=== PATIENT | male | born 1965 | race Caucasian/White ===

== ENCOUNTER 2017-01-13 15:06 | Outpatient (CLI) | payer BC, OTHER ==
[2017-01-13 16:13] LABS: #Basophils 0.1 thou/uL (0.0-0.2); #Eosinphils 0.6 thou/uL (0.0-0.7); #Lymphocytes 2.6 thou/uL (1.20-3.40); %Basophils 0.8 % (0.0-1.0); %Eosinophils 4.3 % (0.0-10.0); %Lymphocytes 19.7 % (21.0-51.0); %Monocytes 7.4 % (0.0-10.0); %Neutrophils 67.9 % (42.0-75.0); Mean Corpuscular HGB CONC 34.2 g/dL (32.0-36.0); Mean Corpuscular Hemoglobin 33.5 pg (27.0-31.0); Mean Platelet Volume 6.2 fL (7.4-10.4); Platelet Count 297 thou/uL (130-400); RBC Distribution Width 12.4 % (11.5-14.5); Red Blood Cell (RBC) Count 4.78 mill/uL (4.70-6.10); White Blood Cell (WBC) Count 13.2 thou/uL (4.8-10.8)
[2017-01-13 16:29] LABS: ALT (SGPT) 22 U/L (0-55); AST (SGOT) 20 U/L (5-34); Albumin 4.1 g/dL (3.5-5.0); Alkaline Phosphatase 101 U/L (40-150); Anion Gap 13 mmol/L (10-20); BUN (Urea Nitrogen) 12 mg/dL (8.4-25.7); Bilirubin, Total 0.4 mg/dL (0.2-1.2); Calc. Creatinine Clearance 0 mL/min (70-130); Carbon Dioxide 25 mmol/L (22-29); Cardiac Risk 8.6 (Less than 4.5); Chloride 105 mmol/L (98-107); Cholesterol 224 mg/dL (< 200 Desired); Estimated GFR-MDRD Greater than 90; Globulin 2.8 g/dL (2.4-3.5); Glucose 105 mg/dL (70-105); HDL Cholesterol 26 mg/dL (>60 Neg Risk); Potassium 4.1 mmol/L (3.5-5.1); Protein, Total 6.9 g/dL (6.0-8.3); Sodium 139 mmol/L (136-145); Triglycerides 541 mg/dL (Less than 150)
== END 2017-01-13 15:07 | disposition home or self-care (01) ==
LOC: HPCALD 15:06
PROVIDERS: ATTEND Physician Assistant
DX: I10 Essential (primary) hypertension (principal)
CPT/HCPCS: 36415; 80053; 80061; 84443; 85025

== ENCOUNTER 2017-02-17 16:53 | Outpatient (CLI) | payer BC ==
[2017-02-17 17:04] LABS: #Basophils 0.1 thou/uL (0.0-0.2); #Eosinphils 0.5 thou/uL (0.0-0.7); #Lymphocytes 2.7 thou/uL (1.20-3.40); #Neutrophils 7.5 thou/uL (1.40-6.50); %Basophils 1.3 % (0.0-1.0); %Eosinophils 4.2 % (0.0-10.0); %Lymphocytes 23.1 % (21.0-51.0); %Monocytes 8.1 % (0.0-10.0); %Neutrophils 63.4 % (42.0-75.0); Hemoglobin 16.3 g/dL (14.0-18.0); Mean Corpuscular HGB CONC 33.3 g/dL (32.0-36.0); Mean Corpuscular Hemoglobin 32.7 pg (27.0-31.0); Mean Corpuscular Volume 98.3 fl (80.0-94.0); Mean Platelet Volume 6.8 fL (7.4-10.4); Platelet Count 201 thou/uL (130-400); RBC Distribution Width 13.4 % (11.5-14.5); White Blood Cell (WBC) Count 11.8 thou/uL (4.8-10.8)
[2017-02-17 18:03] LABS: Anion Gap 16 mmol/L (10-20); BUN (Urea Nitrogen) 13 mg/dL (8.4-25.7); Calc. Creatinine Clearance 0 mL/min (70-130); Calcium 9.2 mg/dL (7.8-10.44); Chloride 107 mmol/L (98-107); Estimated GFR-MDRD Greater than 90; Glucose 98 mg/dL (70-105); Magnesium 2.1 mg/dL (1.6-2.6); Potassium 4.2 mmol/L (3.5-5.1); Sodium 139 mmol/L (136-145)
[2017-02-17 18:05] LABS: Carbon Dioxide 26 mmol/L (22-29)
== END 2017-02-17 16:54 | disposition home or self-care (01) ==
LOC: HPCALD 16:53
PROVIDERS: ATTEND Family Medicine
DX: R42 Dizziness and giddiness (principal); R20.9 Unspecified disturbances of skin sensation
CPT/HCPCS: 36415; 80048; 83735; 85025

== ENCOUNTER 2017-02-20 09:19 | Outpatient (CLI) | payer BC ==
[2017-02-20 10:10] LABS: Cardiac Risk 5.9 (Less than 4.5)
== END 2017-02-20 09:20 | disposition home or self-care (01) ==
LOC: HPCALD 09:19
PROVIDERS: ATTEND Family Medicine
DX: E78.1 Pure hyperglyceridemia (principal)
CPT/HCPCS: 36415; 80061

== ENCOUNTER 2017-08-04 11:18 | Outpatient (CLI) | payer BC ==
--- NOTE | 2017-08-04 14:49 | RAD ---
RIGHT KNEE THREE VIEWS: Date: 08-04-17 FINDINGS: No fracture was seen. The joint space is normal in width. Some very minor bony spurring is seen on t he upper posterior part of the patella. If joint fluid is present, it seems to be minimal. IMPRESSION: No acute findings. See above. POS: [facility]
== END 2017-08-04 11:19 | disposition home or self-care (01) ==
LOC: BUR/OP 11:18
PROVIDERS: ATTEND Family Medicine
DX: M25.561 Pain in right knee (principal)

== ENCOUNTER 2019-03-14 14:31 | Outpatient (CLI) | payer BC ==
--- NOTE | 2019-03-15 07:42 | RAD ---
CHEST TWO VIEWS: 03/14/19 No prior films are available for comparison. The heart is normal in size and the lungs are clear. No infiltrate or effusion was seen. There is no vascular congestion or edema. Haziness at the cardiac ap ex appears to be a fat pad. The lungs may be mildly hyperexpanded. There are degenerative changes in the thoracic spine. IMPRESSION: No acute thoracic finding. POS: HOME
== END 2019-03-14 14:32 | disposition home or self-care (01) ==
LOC: BUREKG 14:31
PROVIDERS: ATTEND Family Medicine
DX: Z01.818 Encounter for other preprocedural examination (principal)
CPT/HCPCS: 71046

== ENCOUNTER 2019-10-18 12:24 | Outpatient (CLI) | payer BC ==
--- NOTE | 2019-10-21 07:29 | RAD ---
Exam:2 views right hip HISTORY: Trochanteric bursitis. COMPARISON: None FINDINGS: Joint spaces essentially preserved. The contour of the femoral head is maintained. No fract ure. IMPRESSION: No significant degenerative change
== END 2019-10-18 12:25 | disposition home or self-care (01) ==
LOC: BURRAD 12:24
PROVIDERS: ATTEND Family Medicine
DX: M70.61 Trochanteric bursitis, right hip (principal)

== ENCOUNTER 2020-09-06 03:15 | Emergency (ER) | payer BC ==
[2020-09-06] MEDS ORDERED: predniSONE 20 MG TAB PO ONE (03:16)
[2020-09-06] MEDS ORDERED: HYDROcodone/Acetaminophen 5/325 mg Tablet PO ONE (03:16)
== END 2020-09-06 03:52 | disposition home or self-care (01) ==
LOC: BURERS 03:15
DX: M54.16 Radiculopathy, lumbar region (principal); E11.9 Type 2 diabetes mellitus without complications; E78.5 Hyperlipidemia, unspecified; I10 Essential (primary) hypertension; Z79.899 Other long term (current) drug therapy; Z79.4 Long term (current) use of insulin; Z79.82 Long term (current) use of aspirin
CPT/HCPCS: 99283; J7512

== ENCOUNTER 2021-10-05 15:20 | Outpatient (CLI) | payer BC | END 2021-10-05 15:21 | disposition home or self-care (01) | LOC: BURRAD 15:20 | PROVIDERS: ATTEND Family Medicine | DX: M25.512 Pain in left shoulder (principal) ==

== ENCOUNTER 2022-08-26 09:30 | Outpatient (CLI) | payer BC | END 2022-08-26 09:31 | disposition home or self-care (01) | LOC: BURRAD 09:30 | PROVIDERS: ATTEND Family Medicine | DX: J44.9 Chronic obstructive pulmonary disease, unspecified (principal) | CPT/HCPCS: 71046 ==